=== PATIENT | male | born 1955 | race Hispanic/Latino ===

== ENCOUNTER 2016-12-07 00:45 | Emergency (ER) | payer SELFPAY ==
[2016-12-07 01:26] VITALS: TEMP 97.7; O2SAT 94
--- NOTE | 2016-12-07 01:35 | ED.PDOC ---
History of Present Illness - General Chief Complaint: Problem Stated Complaint: unable to urinate for the last hour Time Seen by Provider: 12/07/16 01:23 Source: patient, RN notes reviewed, Vital Signs reviewed Exam Limitations: no limitations - History of Present Illness Initial Comments: Patient comes in due to not being able to urinate. Reports he had no problem all day until 1 hour ago. [place] the need to urinate but was unable to go. No prior similar episodes. Timing/Duration: this evening Quality: moderate, other - fullness & pressure Onset Location: suprapubic Radiation: none Activites at Onset: sleep Prior abdominal problems: none Sexual intercourse history: greater than 2 months ago Improving Factors: nothing Worsening Factors: nothing Associated Symptoms: denies symptoms Allergies/Adverse Reactions: Allergies NO KNOWN ALLERGY Allergy (Verified 12/07/16 00:57) Home Medications: Ambulatory Orders Tamsulosin [Flomax] 0.4 mg PO QD #30 cap 12/07/16 Review of Systems - Review of Systems Constitutional: States: no symptoms reported Respiratory: States: no symptoms reported Cardiology: States: no symptoms reported Gastrointestinal/Abdominal: States: no symptoms reported Genitourinary: States: see HPI. Denies: discharge, dysuria, frequency Musculoskeletal: States: no symptoms reported Skin: States: no symptoms reported All other Systems: No Change from Baseline Past Medical History (General) - Patient Medical History Hx Seizures: No Hx Stroke: No Hx Dementia: No Hx Asthma: No Hx of COPD: No Hx Cardiac Disorders: No Hx Congestive Heart Failure: No Hx Pacemaker: No Hx Hypertension: No Hx Thyroid Disease: No Hx Diabetes: No Hx Gastroesophageal Reflux: No Hx Renal Disease: No Hx of HIV: No Hx MRSA: No Surgical History: no surgical history - Vaccination History Hx Tetanus, Diphtheria Vaccination: No Hx Influenza Vaccination: No Hx Pneumococcal Vaccination: No - Social History Hx Tobacco Use: No Hx Chewing Tobacco Use: No Hx Alcohol Use: Yes - weekends Hx Substance Use: No Hx Substance Use Treatment: No Hx Depression: No Feels Threatened In Home Enviroment: No Feels Threatened In a Relationship: No Hx Physical Abuse: No Hx Emotional Abuse: No Hx Suspected Abuse: No Family Medical History - Family History Mother Family History: Unknown Physical Exam - Physical Exam General Appearance: Alert, Comfortable - Catheter already placed by nurse, No apparent distress, Well Developed, Well Groomed, Well Hydrated, Well Nourished Cardiovascular/Respiratory: regular rate, rhythm, no M/R/G, normal breath sounds , no respiratory distress Gastrointestinal/Abdominal: normal bowel sounds, non tender, soft, no organomegaly, no pulsatile mass Extremity: normal inspection Neurologic: alert, normal mood/affect, oriented x 3 Skin Exam: normal color, warm/dry Comments: Vital Signs 12/07/16 00:54 Temperature 97.7 F Pulse Rate [ 100 H monitor] Respiratory 20 Rate Blood Pressure 171/102 [Right Arm] O2 Sat by Pulse 94 L Oximetry Progress - Progress Progress: 12/07/16 01:48 Urine only shows moderate blood Will treat with Flomax and follow up with PCP - Results/Orders Results/Orders: Laboratory Tests 12/07/16 01:15 Urine Color Yellow Urine Appearance Clear Urine pH 5.0 Ur Specific [place] <= 1.005 Urine Protein Negative Urine Glucose (UA) Negative Urine Ketones Negative Urine Blood Moderate H Urine Nitrite Negative Urine Bilirubin Negative Urine Urobilinogen 0.2 Ur Leukocyte Esterase Negative Urine RBC 0-1 Urine WBC 0 Ur Epithelial Cells 0 Amorphous Sediment Trace Urine Bacteria 0 Departure - Departure Clinical Impression: Urinary retention Time of Disposition: 01:54 Disposition: Discharge to Home or Self Care Condition: Good Departure Forms: ED Discharge - Pt. Copy, Patient Portal Self Enrollment Instructions: DI for Urinary Retention in Men Diet: resume usual diet Activity: increase activity as tolerated Referrals: Kelton Ascencio MD [Active Staff] - 1-5 Days Prescriptions: Tamsulosin [Flomax] 0.4 mg PO QD #30 cap Home Medications: Ambulatory Orders Tamsulosin [Flomax] 0.4 mg PO QD #30 cap 12/07/16
[2016-12-07] MEDS ORDERED: TAMSULOSIN 0.4 MG CAP PO ONE (01:49)
[2016-12-07 02:00] VITALS: BP 169/96
== END 2016-12-07 02:08 | disposition home or self-care (01) ==
LOC: ER 00:45
DX: R33.9 Retention of urine, unspecified (principal)

== ENCOUNTER 2016-12-07 04:50 | Emergency (ER) | payer SELFPAY ==
[2016-12-07 05:05] VITALS: BP 156/76; TEMP 98.2; O2SAT 95
--- NOTE | 2016-12-07 05:11 | ED.PDOC ---
History of Present Illness - General Chief Complaint: Problem Stated Complaint: unable to urinate Time Seen by Provider: 12/07/16 05:09 Source: patient, RN notes reviewed, Vital Signs reviewed Exam Limitations: no limitations - History of Present Illness Initial Comments: Patient returns to ER still unable to urinate. Earlier he was seen for urinary retention. Attempted removing catheter and starting Flomax to see if this was an isolated incident due to no obvious cause or prior history. Failed removal and has returned with urinary retention. Still no symptoms other than inability to urinate. Timing/Duration: this morning - ~00:30 Quality: moderate, other - fullness/pressure Onset Location: suprapubic Radiation: none Activites at Onset: sleep Prior abdominal problems: none Sexual intercourse history: greater than 2 months ago Improving Factors: other - catheterization Worsening Factors: nothing Associated Symptoms: denies symptoms Allergies/Adverse Reactions: Allergies NO KNOWN ALLERGY Allergy (Verified 12/07/16 00:57) Home Medications: Ambulatory Orders Tamsulosin [Flomax] 0.4 mg PO QD #30 cap 12/07/16 Review of Systems - Review of Systems Constitutional: States: no symptoms reported Respiratory: States: no symptoms reported Cardiology: States: no symptoms reported Gastrointestinal/Abdominal: States: no symptoms reported Genitourinary: States: see HPI All other Systems: No Change from Baseline Past Medical History (General) - Patient Medical History Hx Seizures: No Hx Stroke: No Hx Dementia: No Hx Asthma: No Hx of COPD: No Hx Cardiac Disorders: No Hx Congestive Heart Failure: No Hx Pacemaker: No Hx Hypertension: No Hx Thyroid Disease: No Hx Diabetes: No Hx Gastroesophageal Reflux: No Hx Renal Disease: No Hx Cancer: No Hx of HIV: No Hx Hepatitis C: No Hx MRSA: No Surgical History: no surgical history - Vaccination History Hx Tetanus, Diphtheria Vaccination: No Hx Influenza Vaccination: No Hx Pneumococcal Vaccination: No - Social History Hx Tobacco Use: No Hx Chewing Tobacco Use: No Hx Alcohol Use: Yes - weekends Hx Substance Use: No Hx Substance Use Treatment: No Hx Depression: No Feels Threatened In Home Enviroment: No Feels Threatened In a Relationship: No Hx Physical Abuse: No Hx Emotional Abuse: No Hx Suspected Abuse: No Family Medical History - Family History Mother Family History: Unknown Physical Exam - Physical Exam General Appearance: Alert, Comfortable, No apparent distress, Well Developed, Well Groomed, Well Hydrated, Well Nourished Cardiovascular/Respiratory: no respiratory distress Male Genital Exam: normal genitalia, other - Catheter replaced w/o difficulty and 600cc urine output. Neurologic: alert, normal mood/affect, oriented x 3 Skin Exam: normal color, warm/dry Comments: Vital Signs 12/07/16 04:57 Temperature 98.2 F Pulse Rate [ 100 H monitor] Respiratory 20 Rate Blood Pressure 156/76 [Left Arm] O2 Sat by Pulse 95 Oximetry Progress - Progress Progress: 12/07/16 05:12 Will replace catheter and have patient follow up for removal in 2-[address] Felix [facility]. Departure - Departure Clinical Impression: Urinary retention Time of Disposition: 05:33 Disposition: Discharge to Home or Self Care Condition: Good Departure Forms: ED Discharge - Pt. Copy, Patient Portal Self Enrollment Diet: resume usual diet Activity: increase activity as tolerated Referrals: JERARDO FELIX MD [Consulting Staff] - 12/10/16 Home Medications: Ambulatory Orders Tamsulosin [Flomax] 0.4 mg PO QD #30 cap 12/07/16 Additional Instructions: Call Dr. Nathan office Thursday to schedule follow up for Thursday Leave catheter in place until follow up
== END 2016-12-07 05:40 | disposition home or self-care (01) ==
LOC: ER 04:50
DX: R33.9 Retention of urine, unspecified (principal)

== ENCOUNTER 2016-12-21 05:13 | Emergency (ER) | payer SELFPAY ==
[2016-12-21 05:38] VITALS: BP 152/77; O2SAT 98
--- NOTE | 2016-12-21 05:59 | ED.PDOC ---
History of Present Illness - General Chief Complaint: Problem Stated Complaint: unable to void Time Seen by Provider: 12/21/16 05:50 Source: patient, RN notes reviewed, Vital Signs reviewed Exam Limitations: no limitations Additional Information: Patient with recent visits to ER for similar issue a few days ago (see record for details). Pt has found the correlation that when he drinks beer he ends up with urinary retention lately. He was recently started on standard BPH medications and he is tolerating these meds without difficulty. Patient also recently completed a course of Cipro. - History of Present Illness Timing/Duration: this morning Quality: moderate - , pain due distention of bladder Onset Location: suprapubic Radiation: none Activites at Onset: none Improving Factors: nothing Worsening Factors: other - drinking EtOH Associated Symptoms: denies symptoms Allergies/Adverse Reactions: Allergies NO KNOWN ALLERGY Allergy (Verified 12/21/16 05:31) Home Medications: Ambulatory Orders Tamsulosin [Flomax] 0.4 mg PO QD #30 cap 12/07/16 Ciprofloxacin 500 mg PO BID 12/21/16 Finasteride 5 mg PO DAILY 12/21/16 Review of Systems - Review of Systems Constitutional: States: no symptoms reported EENTM: States: no symptoms reported Respiratory: States: no symptoms reported Cardiology: States: no symptoms reported Gastrointestinal/Abdominal: States: no symptoms reported Genitourinary: States: see HPI Musculoskeletal: States: no symptoms reported Skin: States: no symptoms reported Neurological: States: no symptoms reported Endocrine: States: no symptoms reported Hematologic/Lymphatic: States: no symptoms reported Past Medical History (General) - Patient Medical History Hx Seizures: No Hx Stroke: No Hx Dementia: No Hx Asthma: No Hx of COPD: No Hx Cardiac Disorders: No Hx Congestive Heart Failure: No Hx Pacemaker: No Hx Hypertension: No Hx Thyroid Disease: No Hx Diabetes: No Hx Gastroesophageal Reflux: No Hx Renal Disease: No Hx Cancer: No Hx of HIV: No Hx Hepatitis C: No Hx MRSA: No - Vaccination History Hx Tetanus, Diphtheria Vaccination: No Hx Influenza Vaccination: No Hx Pneumococcal Vaccination: No - Social History Hx Tobacco Use: No Hx Chewing Tobacco Use: No Hx Alcohol Use: Yes Hx Substance Use: No Hx Substance Use Treatment: No Hx Depression: No Hx Physical Abuse: No Hx Emotional Abuse: No Hx Suspected Abuse: No Family Medical History - Family History Mother Family History: Unknown Physical Exam - Physical Exam General Appearance: Anxious - and pacing with some discomfort prior to straight catheterization. 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 Staff reports some mild resistance with insertion which correlates with history of suspected BPH. Now that patient feels better we will give him a spontaneous void trial over the next 3 to 6 hours. If he is unable to void spontaneously, he will need to return to ER for leg bag laura catheter. Departure - Departure Clinical Impression: Urinary retention Time of Disposition: 06:11 Disposition: Discharge to Home or Self Care Condition: Fair Departure Forms: ED Discharge - Pt. Copy, Patient Portal Self Enrollment Instructions: DI for Urinary Retention in Men Home Medications: Ambulatory Orders Tamsulosin [Flomax] 0.4 mg PO QD #30 cap 12/07/16 Ciprofloxacin 500 mg PO BID 12/21/16 Finasteride 5 mg PO DAILY 12/21/16 Additional Instructions: Continue to take medications as prescribed. Return to the ER if condition recurs/unable to urinate. Return to ER if unable to urinate spontaneously over the next 3 to 6 hours.
[2016-12-21 06:10] VITALS: TEMP 97
== END 2016-12-21 06:10 | disposition home or self-care (01) ==
LOC: ER 05:13
DX: R33.9 Retention of urine, unspecified (principal)

== ENCOUNTER 2016-12-21 08:01 | Emergency (ER) | payer SELFPAY ==
[2016-12-21 08:14] VITALS: BP 132/82; TEMP 97.3; O2SAT 96
--- NOTE | 2016-12-21 08:36 | ED.PDOC ---
History of Present Illness - General Chief Complaint: Problem Stated Complaint: unable to void Time Seen by Provider: 12/21/16 08:05 Source: patient Exam Limitations: no limitations - History of Present Illness Initial Comments: he patient is a 61-year-old male presenting to the emergency room secondary to a recurrence of urinary retention. The patient has had a couple of episodes like this may do seem to follow alcohol intake. He was seen earlier this morning. The patient has recent turn secondary to persistence of inability to urinate. The patient has seen neurology and was placed on a couple of prostate medications. His urinalysis was unimpressive as far as any evidence of infection this morning. He is having some lower abdominal discomfort secondary to bladder distention. He has had a leg bag before for this problem. He does follow with Dr. Ramos for urology. Timing/Duration: 4-6 hours Severity: moderate Improving Factors: nothing Worsening Factors: nothing Associated Symptoms: denies symptoms Allergies/Adverse Reactions: Allergies NO KNOWN ALLERGY Allergy (Verified 12/21/16 05:31) Home Medications: Ambulatory Orders Tamsulosin [Flomax] 0.4 mg PO QD #30 cap 12/07/16 Ciprofloxacin 500 mg PO BID 12/21/16 Finasteride 5 mg PO DAILY 12/21/16 Review of Systems - Review of Systems Constitutional: States: no symptoms reported EENTM: States: no symptoms reported Respiratory: States: no symptoms reported Cardiology: States: no symptoms reported Gastrointestinal/Abdominal: States: see HPI Genitourinary: States: see HPI Musculoskeletal: States: no symptoms reported Skin: States: no symptoms reported Neurological: States: no symptoms reported Endocrine: States: no symptoms reported All other Systems: No Change from Baseline Past Medical History (General) - Patient Medical History Hx Seizures: No Hx Stroke: No Hx Dementia: No Hx Asthma: No Hx of COPD: No Hx Cardiac Disorders: No Hx Congestive Heart Failure: No Hx Pacemaker: No Hx Hypertension: No Hx Thyroid Disease: No Hx Diabetes: No Hx Gastroesophageal Reflux: No Hx Renal Disease: No Hx Cancer: No Hx of HIV: No Hx Hepatitis C: No Hx MRSA: No Surgical History: no surgical history - Vaccination History Hx Tetanus, Diphtheria Vaccination: No Hx Influenza Vaccination: No Hx Pneumococcal Vaccination: No - Social History Hx Tobacco Use: Yes Hx Chewing Tobacco Use: No Hx Alcohol Use: Yes Hx Substance Use: No Hx Substance Use Treatment: No Hx Depression: No Hx Physical Abuse: No Hx Emotional Abuse: No Hx Suspected Abuse: No Family Medical History - Family History Mother Family History: Unknown Physical Exam - Physical Exam General Appearance: Alert, Comfortable, No apparent distress Eye Exam: bilateral normal Ears, Nose, Throat: hearing grossly normal, normal ENT inspection Neck: non-tender, supple Respiratory: no respiratory distress, no accessory muscle use Cardiovascular/Chest: normal peripheral pulses, no edema Peripheral Pulses: radial,right: 2+, radial,left: 2+, dorsalis pedis,right: 2+, dorsalis pedis,left: 2+ Gastrointestinal/Abdominal: soft, other - palpable bladder above the symphysis pubis Rectal Exam: deferred Back Exam: normal inspection, no CVA tenderness Extremity: normal range of motion, non-tender, normal inspection, normal capillary refill 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 Alcohol intake does seem to be a trigger for this problem for him. He does need to continue his medication started by his urologist. He does need to keep follow-up with his urologist. The patient will have a St catheter placed for period of 2 days after which it can be removed and the patient can see if he can urinate normally at that point. He does need to avoid alcohol intake. ER warnings were given for any worsening. He had a urinalysis that was clear earlier today. He does need to obtain a primary care doctor for follow-up of this problem and for following his kidney function. Consideration for a trial of bethanechol in the future might be warranted. Departure - Departure Clinical Impression: Urinary retention Disposition: Discharge to Home or Self Care Condition: Fair Departure Forms: ED Discharge - Pt. Copy, Patient Portal Self Enrollment Instructions: DI for Urinary Retention in Men Diet: regular diet - no alcohol Activity: increase activity as tolerated Home Medications: Ambulatory Orders Tamsulosin [Flomax] 0.4 mg PO QD #30 cap 12/07/16 Ciprofloxacin 500 mg PO BID 12/21/16 Finasteride 5 mg PO DAILY 12/21/16 Additional Instructions: the patient is a 61-year-old male presenting to the emergency room secondary to a recurrence of urinary retention. Alcohol intake does seem to be a trigger for this problem for him. He does need to continue his medication started by his urologist. He does need to keep follow-up with his urologist. The patient will have a St catheter placed for period of 2 days after which it can be removed and the patient can see if he can urinate normally at that point. He does need to avoid alcohol intake. ER warnings were given for any worsening. He had a urinalysis that was clear earlier today. He does need to obtain a primary care doctor for follow-up of this problem and for following his kidney function. Consideration for a trial of bethanechol in the future might be warranted.
== END 2016-12-21 09:06 | disposition home or self-care (01) ==
LOC: ER 08:01
DX: R33.9 Retention of urine, unspecified (principal); Z79.899 Other long term (current) drug therapy; Z87.891 Personal history of nicotine dependence

== ENCOUNTER 2016-12-24 20:22 | Emergency (ER) | payer SELFPAY ==
--- NOTE | 2016-12-24 20:48 | ED.PDOC ---
History of Present Illness - General Time Seen by Provider: 12/24/16 20:33 Source: patient Exam Limitations: no limitations - History of Present Illness Initial Comments: Maycol Terry 61 y/o male stated that he has difficulty urinating today after laura cath taken out by urologist today felt better initially and was prescribed flomax and proscar.Had multiple ER visit for same symptoms .But tonight has urinary frequency and dribbling of urine Timing/Duration: this evening, other - 30 days Quality: mild, burning Onset Location: suprapubic Radiation: none Activites at Onset: none Prior abdominal problems: similar symptoms Sexual intercourse history: not active Improving Factors: nothing Worsening Factors: other - urination Associated Symptoms: other - see hpi Allergies/Adverse Reactions: Allergies NO KNOWN ALLERGY Allergy (Verified 12/21/16 05:31) Home Medications: Ambulatory Orders Tamsulosin [Flomax] 0.4 mg PO QD #30 cap 12/07/16 Ciprofloxacin 500 mg PO BID 12/21/16 Finasteride 5 mg PO DAILY 12/21/16 Oxybutynin Chloride [Ditropan] 5 mg PO BID #30 tab 12/24/16 Review of Systems - Review of Systems Genitourinary: States: see HPI All other Systems: No Change from Baseline Past Medical History (General) - Patient Medical History Hx Seizures: No Hx Stroke: No Hx Dementia: No Hx Asthma: No Hx of COPD: No Hx Cardiac Disorders: No Hx Congestive Heart Failure: No Hx Pacemaker: No Hx Hypertension: No Hx Thyroid Disease: No Hx Diabetes: No Hx Gastroesophageal Reflux: No Hx Renal Disease: No Hx Cancer: No Hx of HIV: No Hx Hepatitis C: No Hx MRSA: No Hx Other PMH: Yes - prostate Surgical History: no surgical history - Vaccination History Hx Tetanus, Diphtheria Vaccination: No Hx Influenza Vaccination: No Hx Pneumococcal Vaccination: No - Social History Hx Tobacco Use: Yes Hx Chewing Tobacco Use: No Hx Alcohol Use: Yes Hx Substance Use: No Hx Substance Use Treatment: No Hx Depression: No Hx Physical Abuse: No Hx Emotional Abuse: No Hx Suspected Abuse: No Family Medical History - Family History Mother Family History: Unknown Physical Exam - Physical Exam General Appearance: Alert, Comfortable, No apparent distress Eyes, Ears, Nose, Throat Exam: PERRL/EOMI, normal ENT inspection Neck: full range of motion, supple Cardiovascular/Respiratory: regular rate, rhythm, no M/R/G, normal peripheral pulses Gastrointestinal/Abdominal: non tender, soft, no organomegaly Rectal Exam: deferred - done by urologist with enlarged prostate Male Genital Exam: normal genitalia Back Exam: no vertebral tenderness Extremity: no pedal edema, no calf tenderness Neurologic: alert, oriented x 3 Progress - Progress Progress: 12/24/16 21:11 Vital Signs - 8 hr 12/24/16 20:22 Temperature 97.9 F Respiratory 18 Rate Blood Pressure 150/72 [Left Arm] O2 Sat by Pulse 97 Oximetry 12/24/16 21:23 Residual urine after bladder cath 600 ml. - Results/Orders Results/Orders: Laboratory Tests 12/24/16 21:30 Urine Color Yellow Urine Appearance Clear Urine pH 7.0 Ur Specific [place] 1.015 Urine Protein Negative Urine Glucose (UA) Negative Urine Ketones Negative Urine Blood Trace-intact H Urine Nitrite Negative Urine Bilirubin Negative Urine Urobilinogen 0.2 Ur Leukocyte Esterase Negative Urine RBC 1-3 Urine WBC 0 Ur Epithelial Cells 0 Urine Bacteria Rare Urine Mucus Trace Departure - Departure Clinical Impression: Urinary retention due to benign prostatic hyperplasia Time of Disposition: 22:35 Disposition: Discharge to Home or Self Care Condition: Fair Instructions: DI for Benign Prostatic Hyperplasia, Benign Prostatic Hyperplasia (Alternative Therapy), DI for Urinary Retention in Men Prescriptions: Oxybutynin Chloride [Ditropan] 5 mg PO BID #30 tab Home Medications: Ambulatory Orders Tamsulosin [Flomax] 0.4 mg PO QD #30 cap 12/07/16 Ciprofloxacin 500 mg PO BID 12/21/16 Finasteride 5 mg PO DAILY 12/21/16 Oxybutynin Chloride [Ditropan] 5 mg PO BID #30 tab 12/24/16 Additional Instructions: Continue with current medications:NEED TO SIGN UP WITH PRIMARY -DELORES-[id number] call for appointment
[2016-12-24] MEDS ORDERED: OXYBUTYNIN CL 5 MG TAB ONE (21:52)
[2016-12-24 22:02] VITALS: O2SAT 98
[2016-12-24 23:00] VITALS: BP 120/57; TEMP 98.1
[2016-12-25] MEDS ORDERED: OXYBUTYNIN CL 5 MG TAB PO SCH (09:00)
[2016-12-25] MEDS ORDERED: OXYBUTYNIN CL 5 MG TAB PO ONE (21:40)
== END 2016-12-24 23:00 | disposition home or self-care (01) ==
LOC: ER 20:22
DX: N40.1 Benign prostatic hyperplasia with lower urinary tract symptoms (principal); R33.8 Other retention of urine; Z87.891 Personal history of nicotine dependence

== ENCOUNTER 2016-12-25 00:25 | Emergency (ER) | payer SELFPAY ==
[2016-12-25 00:38] VITALS: BP 155/87; TEMP 98.1; O2SAT 99
--- NOTE | 2016-12-25 00:54 | ED.PDOC ---
History of Present Illness - General Chief Complaint: Problem Stated Complaint: unable to urinate Time Seen by Provider: 12/25/16 00:47 Source: patient Exam Limitations: no limitations - History of Present Illness Initial Comments: Maycol Terry 61 y/o male with history of urinary retention due to bph and had numerous er visit for this problem returned 2-3 hours after discharge from er due to same symptoms.Seen Urologist recently today Dr. Theron Ramos and laura cath taken out today;Had urinalysis done ER-clear Timing/Duration: constant, other - 30 days Quality: burning Onset Location: other - 30 days Radiation: none Activites at Onset: none Prior abdominal problems: similar symptoms Sexual intercourse history: not active Improving Factors: other - laura cath Worsening Factors: other - urinating without laura Associated Symptoms: other - see hpi Allergies/Adverse Reactions: Allergies NO KNOWN ALLERGY Allergy (Verified 12/25/16 00:38) Home Medications: Ambulatory Orders Tamsulosin [Flomax] 0.4 mg PO QD #30 cap 12/07/16 Ciprofloxacin 500 mg PO BID 12/21/16 Finasteride 5 mg PO DAILY 12/21/16 Oxybutynin Chloride [Ditropan] 5 mg PO BID #30 tab 12/24/16 Sulfa/Trimeth 800/160 (Ds) Tab [Bactrim DS Tab] 1 ea PO BID #14 tab 12/25/16 Review of Systems - Review of Systems Genitourinary: States: see HPI All other Systems: Reviewed and Negative, No Change from Baseline Past Medical History (General) - Patient Medical History Hx Seizures: No Hx Stroke: No Hx Dementia: No Hx Asthma: No Hx of COPD: No Hx Cardiac Disorders: No Hx Congestive Heart Failure: No Hx Pacemaker: No Hx Hypertension: No Hx Thyroid Disease: No Hx Diabetes: No Hx Gastroesophageal Reflux: No Hx Renal Disease: No Hx Cancer: No Hx of HIV: No Hx Hepatitis C: No Hx MRSA: No Hx Other PMH: Yes - bph Surgical History: no surgical history - Vaccination History Hx Tetanus, Diphtheria Vaccination: No Hx Influenza Vaccination: No Hx Pneumococcal Vaccination: No - Social History Hx Tobacco Use: Yes Hx Chewing Tobacco Use: No Hx Alcohol Use: Yes - social Hx Substance Use: No Hx Substance Use Treatment: No Hx Depression: No Hx Physical Abuse: No Hx Emotional Abuse: No Hx Suspected Abuse: No - Female History Patient : - N/A Family Medical History - Family History Mother Family History: Unknown Physical Exam - Physical Exam General Appearance: Alert, Comfortable, No apparent distress Eyes, Ears, Nose, Throat Exam: normal ENT inspection Neck: full range of motion, supple Cardiovascular/Respiratory: regular rate, rhythm, no M/R/G, normal peripheral pulses, normal breath sounds Gastrointestinal/Abdominal: soft, no organomegaly Rectal Exam: deferred - prostate exam done by Urologist Male Genital Exam: normal genitalia Neurologic: alert Skin Exam: normal color, warm/dry Departure - Departure Clinical Impression: Urinary retention due to benign prostatic hyperplasia Time of Disposition: 00:59 Disposition: Discharge to Home or Self Care Condition: Fair Departure Forms: ED Discharge - Pt. Copy, Patient Portal Self Enrollment Prescriptions: Sulfa/Trimeth 800/160 (Ds) Tab [Bactrim DS Tab] 1 ea PO BID #14 tab Home Medications: Ambulatory Orders Tamsulosin [Flomax] 0.4 mg PO QD #30 cap 12/07/16 Ciprofloxacin 500 mg PO BID 12/21/16 Finasteride 5 mg PO DAILY 12/21/16 Oxybutynin Chloride [Ditropan] 5 mg PO BID #30 tab 12/24/16 Sulfa/Trimeth 800/160 (Ds) Tab [Bactrim DS Tab] 1 ea PO BID #14 tab 12/25/16 Additional Instructions: FOLLOW UP WITH UROLOGIST CALL OFFICE FOR APPOINTMENT
== END 2016-12-25 01:31 | disposition home or self-care (01) ==
LOC: ER 00:25
DX: N40.1 Benign prostatic hyperplasia with lower urinary tract symptoms (principal); R33.8 Other retention of urine; Z87.891 Personal history of nicotine dependence